=== PATIENT | female | born 1995 | race Caucasian/White ===

== ENCOUNTER 2025-04-13 16:27 | Emergency (ER) | payer SELFPAY ==
[~2025-04-13] VITALS: Ht 154.9 cm; Wt 124.5 kg
[2025-04-13 16:32] VITALS: BP 170/100; PULSE 104; TEMP 98.2; O2SAT 98
--- NOTE | 2025-04-13 17:10 | Physician Documentation ---
History of Present Illness Chief Complaint: Abdominal Pain Stated Complaint: ABD PAIN/GB HPI This 29-year-old female presents with approximately one-week of intermittent right upper quadrant pain described as cramping worse after eating or when she bends over, patient additionally reports persistent right flank pain for the past two weeks though reports that it as non severe. Patient reports recently treated for UTI. Reports no history of gallstones or kidney stones. Medication Reconciliation Allergies: Coded Allergies: No Known Allergies (Unverified , 04/13/25) Review of Systems All Other Systems at this time: Reviewed and Negative Physical Exam Vital Signs: RN Vital Signs have been reviewed: Yes, Temperature: 98.2, Source: Temporal, Heart Rate: 104, Respiratory Rate: 18, BP: 170/100, Pulse Oximetry: 98, Weight: 124.500 Physical Exam VITALS: Reviewed and as above. GENERAL: Alert, nontoxic appearing, no apparent distress. HEENT: NCAT, PERRL RESPIRATORY: No increased work of breathing, no respiratory distress, speaking in full clear sentences BACK: No CVA tenderness, no tenderness to palpation to the back GI: soft, nontender, no mcburney's point tenderness SKIN: w/d/i Progress Results/Orders Results/Orders Vital Signs 04/13/25 16:32 Temp 98.2 Pulse 104 Resp 18 B/P (MAP) 170/100 Pulse Ox 98 Medical Decision Making Findings 29 year old female with UTI vs. pyelonephritis vs. biliary colic vs. cholecystitis. labs unremarkable, awaiting ultrasound RUQ for possible stones and results of UA. Will sign out to oncoming ER physician for disposition. Received care of patient to follow up ultrasound and labs. Ultrasound is reassuring however patient does exhibit pancreatitis. She drinks moderately and ultrasound was negative for elevated common bile duct stone/gallstones. Triglycerides ordered which were mildly elevated however not severe enough to cause jatinder pancreatitis. Unknown cause for patient's pancreatitis although patient does endorse recent multiple antibiotic use the antibiotics as she took do not have a common cause for pancreatitis. She has been using some daily NSAIDs. No steroids and no supplements. No other medications. After offering admission for further investigation patient is declining and would prefer a more conservative management with lots of fluids, avoidance of NSAIDs and diet mo dification. She demonstrates capacity after discussing risks. ER precautions discussed. Differential Dx:Considerations: Include: Appendicitis, Cholangitis, Cholelithasis, Gastritis/PUD, Gastroenteritis, Urinary tract infection, Urol ithiasis, Other (Cholecystitis, pyelonephritis) Departure Disposition: HOME / SELF CARE / HOMELESS Impression: Primary Impression: Pancreatitis Condition: Stable Discharge Instructions: Pancreatitis Eating Plan Additional Instructions: Drink plenty of fluids. Avoid NSAIDs. Very low fat diet. Follow diet guidelines given. Return for worsening of symptoms Referrals: NO PRIMARY CARE PROVIDER (PCP) Education Educated: Patient Educated regarding: diagnosis, treatment, prognosis, need for follow up Signature Scribe Signature: . Attestation: The note accurately reflects work and decisions made by me.Frandy Epps MD 04/13/25 20:00 . BLAIR GARCIA April 13, 2025 17:10 EVERARDO JIANG MD April 13, 2025 17:29 FRANDY EPPS MD April 13, 2025 20:00
[2025-04-13 17:18] LABS: BASOPHILS # (AUTO) 0.1 X10'3 (0-0.2); BASOPHILS % (AUTO) 0.6 % (0-1); EOSINOPHILS # (AUTO) 0.2 X10'3 (0-0.9); EOSINOPHILS % (AUTO) 1.9 % (0-6); HEMATOCRIT 50.5 % (35.0-45.0); HEMOGLOBIN 17.4 g/dl (12.0-16.0); LYMPHOCYTES # (AUTO) 2.9 X10'3 (1.1-4.8); LYMPHOCYTES % (AUTO) 28.7 % (21-51); MEAN CORPUSCULAR HEMOGLOBIN 32.3 PG (27.0-31.0); MEAN CORPUSCULAR HGB CONC 34.4 g/dL (33.0-36.5); MEAN CORPUSCULAR VOLUME 93.6 FL (78-98); MONOCYTES # (AUTO) 0.7 X10'3 (0-0.9); MONOCYTES % (AUTO) 7.1 % (2-12); NEUTROPHILS # (AUTO) 6.3 X10'3 (1.8-7.7); NEUTROPHILS % (AUTO) 61.7 % (42-75); PLATELET COUNT 203 X10'3 (140-440); RED BLOOD COUNT 5.39 X10'6 (4.20-5.60); RED CELL DISTRIBUTION WIDTH 13.1 % (11.5-14.5); WHITE BLOOD COUNT 10.3 X10'3 (4.5-11.0)
[2025-04-13 17:28] VITALS: RESP 18
[2025-04-13 17:33] LABS: ALBUMIN 4.2 G/DL (3.4-5.0); AMYLASE 45 U/L (25-115); ANION GAP 9 (8-16); BLOOD UREA NITROGEN 14 MG/DL (7-18); CALCIUM 9.4 MG/DL (8.5-10.1); CHLORIDE 102 MMOL/L (99-107); GLUCOSE 106 MG/DL (70-104); LIPASE 95 U/L (16-77); POTASSIUM 3.9 MMOL/L (3.5-5.1); SODIUM 140 MMOL/L (135-145); TOTAL CARBON DIOXIDE 29.4 MMOL/L (24-32); eCRCL 90 ML/MIN; eGFR > 90 ML/MIN
[2025-04-13 17:43] LABS: BILIRUBIN,URINE NEGATIVE (Neg); CLARITY,URINE CLEAR (Clear); COLOR,URINE YELLOW (Yellow); GLUCOSE, URINE NEGATIVE (Neg); KETONES,URINE NEGATIVE (Neg); LEUKOCYTE ESTERASE ,URINE SMALL (Neg); NITRITES, URINE NEGATIVE (Neg); OCCULT BLOOD,URINE NEGATIVE (Neg); PH,URINE 6.5 (4.8-8.0); PROTEIN,URINE NEGATIVE (Neg); UROBILINOGEN,URINE 0.2 E.U/dL (0.2-1.0)
[2025-04-13 17:44] LABS: URINE HCG NEGATIVE (NEG)
[2025-04-13 17:49] LABS: UA COLLECTION TYPE NON-SPECIFIED
[2025-04-13 17:49] LABS: ALANINE AMINOTRANSFERASE 326 U/L (12-78); ALBUMIN/GLOBULIN RATIO 1.2 (1.1-1.5); ALKALINE PHOSPHATASE 67 IU/L (46-116); ASPARTATE AMINO TRANSFERASE 104 U/L (10-37); BILIRUBIN,TOTAL 0.6 MG/DL (0.1-1.0); TOTAL PROTEIN 7.7 G/DL (6.4-8.2)
[2025-04-13 17:50] LABS: BACTERIA,URINE FEW /HPF (Neg); RBC,URINE 0-2 /HPF (0-2); SQUAMOUS EPITHELIAL CELL,UR FEW /LPF (FEW)
[2025-04-13 17:51] LABS: TRANSITIONAL EPI CELLS,URINE FEW /HPF
[2025-04-13 19:27] LABS: TRIGLYCERIDES 208 MG/DL (20-135)
--- NOTE | 2025-04-13 21:56 | RADIOLOGY REPORT ---
Clinical History RUQ pain Comparison None Technique: Standard grayscale images were acquired in multiple planes with additional Doppler interro gation when appropriate. Without Contrast ALFREDITO SPARROW, [id number] Findings: Liver: No mass or ductal dilatation. dense echotexture of the liver, liver measures 16.4 cm. Gallbladder: No gallstones, wall thickening or pericholecystic fluid. Common bile duct: Within normal limits. Right kidney: No kidney stone or hydronephrosis. Pancreas is poorly seen due to overlying bowel gas. Impression: 1. No evidence of an obstructive kidney stone or gallstone. 2. Dense echotexture of the liver suggesting steatosis. This report was electronically signed by Lindsay Robin MD on 04/13/2025 9:54:08 PM.
== END 2025-04-13 20:04 | disposition home or self-care (01) ==
LOC: ER 16:28
DX: K85.90 Acute pancreatitis without necrosis or infection, unspecified (principal)
CPT/HCPCS: 36415; 76700; 80053; 81001; 81025; 82150; 83690; 84478; 85025; 87088; 99284

== ENCOUNTER 2025-05-03 16:04 | Emergency (ER) | payer SELFPAY ==
[~2025-05-03] VITALS: Ht 154.9 cm; Wt 112.7 kg
[2025-05-03 16:10] VITALS: TEMP 99.1
--- NOTE | 2025-05-03 16:51 | Physician Documentation ---
History of Present Illness ~ Chief Complaint: Abdominal Pain Stated Complaint: ABD PAIN Time Seen by MD: 17:26 HPI This 29-year-old female presents with one month of intermittent right upper quadrant abdominal pain described as sharp that comes and goes, patient reports history of pancreatitis. Patient reports that the pain is typically worse after eating but eating does not consistently produce pain. Patient reports no fever, vomiting, or diarrhea. Patient reports she has not had a chance to follow up with her primary care provider about this. Patient reports no other acute symptoms or concerns. Medication Reconciliation Allergies: Coded Allergies: No Known Allergies (Unverified , 05/03/25) Past Medical History Past Medical History: No Pertinent History Review of Systems ROS Intermittent right upper quadrant pain as stated above in the HPI, otherwise all systems are reviewed and negative. Physical Exam Vital Signs: Temperature: 99.1, Heart Rate: 61, Respiratory Rate: 16, BP: 134/92, Pulse Oximetry: 99, Weight: 112.700 Oxygen Flow Rate: 0 Physical Exam VITALS: Reviewed and as above. GENERAL: Alert, nontoxic appearing, no apparent distress. RESPIRATORY: No increased work of breathing, no respiratory distress, speaking in full clear sentences, lung sounds in all de jesus CV: Regular rate and rhythm no murmur BACK: No CVA tenderness GI: Minimal tenderness to palpation of right upper quadrant otherwise abdomen nontender to palpation. Soft, nondistended, no rebound, no guarding, bowel sounds present Progress Results/Orders Results/Orders Orders - LBAIR GARCIA Ultrasound Of Abdomen (05/03/25 18:08) Cult Urine + [place] (05/03/25 18:12) Completed Orders - BLAIR GARCIA Hcg, Ur Ql (05/03/25 16:28) Cbc/Diff (05/03/25 16:28) Lipase (05/03/25 16:28) CMP (05/03/25 16:28) Ua W/Microscopic, Cult If Ind (05/03/25 17:24) Ultrasound Of Abdomen (05/03/25 18:08) Vital Signs 05/03/25 05/03/25 05/03/25 05/03/25 16:10 17:25 17:38 19:07 Temp 99.1 Pulse 61 91 87 Resp 16 15 16 16 B/P (MAP) 134/92 142/92 (109) 137/81 (99) Pulse Ox 99 99 100 O2 Flow Rate 0 0 0 Laboratory Tests Test 05/03/25 16:53 05/03/25 17:24 White Blood Count 7.8 Red Blood Count 5.22 Hemoglobin 16.2 H Hematocrit 48.2 H Mean Corpuscular Volume 92.4 Mean Corpuscular Hemoglobin 31.0 Mean Corpuscular Hemoglobin Concent 33.5 Red Cell Distribution Width 12.4 Platelet Count 206 Mean Platelet Volume 11.1 H Neutrophils (%) (Auto) 54.3 Lymphocytes (%) (Auto) 37.5 Monocytes (%) (Auto) 5.9 Eosinophils (%) (Auto) 1.9 Basophils (%) (Auto) 0.4 Neutrophils # (Auto) 4.2 Lymphocytes # (Auto) 2.9 Monocytes # (Auto) 0.5 Eosinophils # (Auto) 0.1 Basophils # (Auto) 0.0 CBC Comment Platelet Estimate Normal Large Platelets Few Red Blood Cell Morphology Normal Polychromasia Basophilic Stippling Sodium Level 138 Potassium Level 3.7 Chloride Level 100 Carbon Dioxide Level 25.7 Anion Gap 12 Blood Urea Nitrogen 12 Creatinine 1.13 H Estimated GFR/1.73 m2 57 BUN/Creatinine Ratio 10.6 Glucose Level 104 Calcium Level 9.6 Total Bilirubin 0.6 Aspartate Amino Transf (AST/SGOT) 39 H Alanine Aminotransferase (ALT/SGPT) 112 H Alkaline Phosphatase 70 Total Protein 7.5 Albumin 4.3 Globulin 3.2 Albumin/Globulin Ratio 1.3 Lipase 67 Chemistry Comments Urine Specimen Description Cln catch midstream Urine Color Yellow Urine Clarity Clear Urine pH 6.0 Urine Specific [place] <=1.005 Urine Protein Negative Urine Glucose (UA) Negative Urine Ketones 15 H Urine Occult Blood Negative Urine Nitrite Negative Urine Bilirubin Negative Urine Urobilinogen 0.2 Urine Leukocyte Esterase Small H Urine RBC 3-10 Urine WBC 5-10 H Urine Squamous Epithelial Cells Few Urine Transitional Epithelial Cells Moderate Urine Bacteria Few Urine Mucus Few Urine Culture Indicated Indicated Volume Urine Centrifuged 10 ml Urine HCG, Qualitative Negative Urine Comment Microbiology Date/Time Source Procedure Growth Status 05/03/25 18:12 Urine Clean Catch Midstream Urine Culture - Preliminary NO GROWTH AFTER 1 DAY Resulted EKG/XRAY/CT/US/VASC/MRI Ultrasound : Impression EXAM: US ULTRASOUND OF RIGHT UPPER QUADRANT ABDOMEN HISTORY: RUQ Abd Pain COMPARISON: US ULTRASOUND OF ABDOMEN on DOS: 04/13/25 TECHNIQUE: Real-time grayscale and color flow images of the right upper quadrant of the abdomen were obtained. FINDINGS: LIVER: Liver measures 15.6 cm craniocaudal. The liver parenchyma appears echogenic suggestive of steatosis. No focal lesion is identified. No intrahepatic ductal dilatation. Normal hepatopetal flow is seen in the portal vein. GALLBLADDER: No gallstones. No gallbladder wall edema or pericholecystic fluid. Gallbladder wall thickness is 0.3 cm. There is no sonographic mc's sign. COMMON BILE DUCT: 5 mm in caliber. PANCREAS: Visualized portions are unremarkable. RIGHT KIDNEY: The right kidney measures 13.2 x 6.0 by 6.5 cm. There is no hydronephrosis. There is no suspicious right renal lesion. There is no sonographic evidence of right renal calculus. IMPRESSION: No sonographic evidence of acute cholecystitis. Increased hepatic echogenicity. This may be secondary to steatosis or another diffuse hepatic process. Correlate clinically and with liver function tests. Electronically Signed by:ROSEMARIE THACKER MD Date & Time: 05/03/251953 Dictated by: ROSEMARIE THACKER MD Dictation date and time: 05/03/251953 Medical Decision Making Findings This 29-year-old female presented to with one-month of intermittent right upper quadrant abdominal pain, patient had been previously seen for similar concern diagnosed with mild pancreatitis and admitted diet change measures which she has implemented and reports symptoms are decreasing in severity though still present. Patient had not had a chance to follow up with the primary care provider about this concern and returned to the emergency department for further evaluation. Upon my exam the patient was reporting minimal pain and exam of the abdomen demonstrated very minimal tenderness to palpation of the right upper quadrant, ultrasound of the abdomen was obtained and per initial report from cell phone repair technician there was no evidence of cholecystitis, cholangitis, or cholelithiasis. Patient's lab work was reassuring without clinically significant abnormality, of note patient's lipase level had decreased from previous visit likely indicating effectiveness of diet change for mild pancreatitis symptoms. Otherwise patient's exam was benign vital signs are stable, there was no clear cause of patient's abdominal pain which I advised patient of, by the end of patient's ED stay she was reporting no abdominal pain and is appropriate for outpatient follow up. Patient advised that she will need to follow up with the next few days with the primary care provider for further evaluation of her symptoms, patient provided home care instructions and return to care precautions for abdominal pain. Diff Dx Pain:Considerations: Include: Appendicitis, Bowel obstruction, Cholangitis, Cholecystitis, Cholelithasis, Constipation, Diverticular disease, Ectopic , Gastritis/PUD, Inflammatory BD, Ovarian cyst/torsion, Pancreatitis, Urinary obstruction, Urinary tract infection Departure Disposition: HOME / SELF CARE / HOMELESS Impression: Primary Impression: Abdominal pain Qualified Codes: R10.11 - Right upper quadrant pain Condition: Improved Discharge Instructions: Abdominal Pain (Nonspecific) Additional Instructions: The source of your abdominal pain is not clear though you are ultrasound and labs were reassuring, you will need to follow up with her primary care provider for further workup of this intermittent pain. Please follow up with your primary care provider in the next few days. Please return to the emergency department for any new or worsening concerning symptoms. Referrals: NO PRIMARY CARE PROVIDER (PCP) Education Educated: Patient Educated regarding: diagnosis, treatment, prognosis, need for follow up Additional Comment Medical Screen Exam History: See HPI VITALS: Reviewed and as above. GENERAL: Alert, nontoxic appearing, no apparent distress. RESPIRATORY: No increased work of breathing, no respiratory distress, speaking in full clear sentences MSE performed in triage and patient returned to ED lobby by nursing staff Signature Scribe Signature: No scribe Attestation: The note accurately reflects work and decisions made by me.ANDERS Conley 05/05/25 03:38 BLAIR GARCIA May 03, 2025 16:51
[2025-05-03 17:11] LABS: BASOPHILS % (AUTO) 0.4 % (0-1); EOSINOPHILS # (AUTO) 0.1 X10'3 (0-0.9); EOSINOPHILS % (AUTO) 1.9 % (0-6); HEMATOCRIT 48.2 % (35.0-45.0); HEMOGLOBIN 16.2 g/dl (12.0-16.0); LYMPHOCYTES # (AUTO) 2.9 X10'3 (1.1-4.8); LYMPHOCYTES % (AUTO) 37.5 % (21-51); MEAN CORPUSCULAR HGB CONC 33.5 g/dL (33.0-36.5); MEAN CORPUSCULAR VOLUME 92.4 FL (78-98); MEAN PLATELET VOLUME 11.1 FL (7.4-10.4); MONOCYTES # (AUTO) 0.5 X10'3 (0-0.9); MONOCYTES % (AUTO) 5.9 % (2-12); NEUTROPHILS # (AUTO) 4.2 X10'3 (1.8-7.7); NEUTROPHILS % (AUTO) 54.3 % (42-75); PLATELET COUNT 206 X10'3 (140-440); RED BLOOD COUNT 5.22 X10'6 (4.20-5.60); RED CELL DISTRIBUTION WIDTH 12.4 % (11.5-14.5); WHITE BLOOD COUNT 7.8 X10'3 (4.5-11.0)
[2025-05-03 17:30] LABS: ALANINE AMINOTRANSFERASE 112 U/L (12-78); ALBUMIN 4.3 G/DL (3.4-5.0); ALBUMIN/GLOBULIN RATIO 1.3 (1.1-1.5); ALKALINE PHOSPHATASE 70 IU/L (46-116); ANION GAP 12 (8-16); ASPARTATE AMINO TRANSFERASE 39 U/L (10-37); BILIRUBIN,TOTAL 0.6 MG/DL (0.1-1.0); BLOOD UREA NITROGEN 12 MG/DL (7-18); BUN/CREATININE RATIO 10.6 (10.0-20.0); CALCIUM 9.6 MG/DL (8.5-10.1); CHLORIDE 100 MMOL/L (99-107); CREATININE 1.13 MG/DL (0.40-0.90); GLUCOSE 104 MG/DL (70-104); LIPASE 67 U/L (16-77); POTASSIUM 3.7 MMOL/L (3.5-5.1); SODIUM 138 MMOL/L (135-145); TOTAL CARBON DIOXIDE 25.7 MMOL/L (24-32); TOTAL PROTEIN 7.5 G/DL (6.4-8.2); eCRCL 56 ML/MIN; eGFR 57 ML/MIN
[2025-05-03 17:40] LABS: LARGE PLATELETS FEW; PLATELET ESTIMATE NORMAL
[2025-05-03 17:54] LABS: BILIRUBIN,URINE NEGATIVE (Neg); CLARITY,URINE CLEAR (Clear); COLOR,URINE YELLOW (Yellow); GLUCOSE, URINE NEGATIVE (Neg); KETONES,URINE 15 mg/dl (Neg); LEUKOCYTE ESTERASE ,URINE SMALL (Neg); NITRITES, URINE NEGATIVE (Neg); OCCULT BLOOD,URINE NEGATIVE (Neg); PROTEIN,URINE NEGATIVE (Neg); UROBILINOGEN,URINE 0.2 E.U/dL (0.2-1.0)
[2025-05-03 17:55] LABS: URINE HCG NEGATIVE (NEG)
[2025-05-03 18:08] LABS: UA COLLECTION TYPE CLN CATCH MIDSTREAM
[2025-05-03 18:09] LABS: MUCUS STRANDS FEW /LPF (Neg)
[2025-05-03 18:10] LABS: BACTERIA,URINE FEW /HPF (Neg)
[2025-05-03 18:11] LABS: TRANSITIONAL EPI CELLS,URINE MODERATE /HPF
[2025-05-03 18:12] LABS: SQUAMOUS EPITHELIAL CELL,UR FEW /LPF (FEW)
[2025-05-03 19:07] VITALS: BP 137/81; PULSE 87; RESP 16; O2SAT 100
--- NOTE | 2025-05-04 17:39 | RADIOLOGY REPORT ---
EXAM: US ULTRASOUND OF RIGHT UPPER QUADRANT ABDOMEN HISTORY: RUQ Abd Pain COMPARISON: US ULTRASOUND OF ABDOMEN on DOS: 04/13/25 TECHNIQUE: Real-time grayscale and color flow images of the right upper quadrant of the abdomen were obtained. FINDINGS: LIVER: Liver measures 15.6 cm craniocaudal. The liver parenchyma appears echogenic suggestive of haley atosis. No focal lesion is identified. No intrahepatic ductal dilatation. Normal hepatopetal flow is seen in the portal vein. GALLBLADDER: No gallstones. No gallbladder wall edema or pericholecystic fluid. Gallbladder wall thi ckness is 0.3 cm. There is no sonographic mc's sign. COMMON BILE DUCT: 5 mm in caliber. PANCREAS: Visualized portions are unremarkable. RIGHT KIDNEY: The right kidney measures 13.2 x 6.0 by 6.5 cm. There is no hydronephrosis. There is no suspicious right renal lesion. There is no sonographic evidence of right renal calculus. IMPRESSION: No sonographic evidence of acute cholecystitis. Increased hepatic echogenicity. This may be secondary to steatosis or another diffuse hepatic process . Correlate clinically and with liver function tests.
== END 2025-05-04 00:16 | disposition home or self-care (01) ==
LOC: ER 16:04
DX: R10.11 Right upper quadrant pain (principal)
CPT/HCPCS: 36415; 76700; 80053; 81001; 81025; 83690; 85008; 85025; 87088; 99284